=== PATIENT | male | born 1955 | race Caucasian/White ===

== ENCOUNTER 2017-04-16 10:05 | Emergency (ER) | payer BC ==
--- NOTE | 2017-04-16 12:06 | UC ---
Abdominal Pain Male HPI - HPI Summary HPI Summary: c/o diffuse abd pain right upper and lower abdomen---no fevers, eating ok - History of Current Complaint Chief Complaint: UCAbdominalPain Stated Complaint: MED REACTION/SIDE EFFECTS Time Seen by Provider: 04/16/17 10:40 Hx Obtained From: Patient Onset/Duration: Gradual Onset, Lasting Days, Still Present Timing: Intermittent Episodes Lasting: Severity Initially: Moderate Severity Currently: Mild Pain Intensity: 3 Pain Scale Used: 0-10 Numeric Location: Diffuse, Discrete At: RUQ, Discrete At: RLQ Radiates: No Character: Cramping Aggravating Factor(s):: Nothing Alleviating Factor(s): Nothing - did stop taking his questran Associated Signs And Symptoms: Positive: Negative - Allergies/Home Medications Allergies/Adverse Reactions: Allergies Allergy/AdvReac Type Severity Reaction Status Date / Time No Known Allergies Allergy Verified 04/16/17 10:45 Home Medications: Home Medications Cholestyramine Resin* [Questran*] 4 gm PO BID 04/16/17 [History Confirmed ] PMH/Surg Hx/FS Hx/Imm Hx Previously Healthy: Yes - Surgical History Surgical History: None - Family History Known Family History: Positive: Unknown - Social History Occupation: Retired Lives: With Family Alcohol Use: Weekly Substance Use Type: None Smoking Status (MU): Never Smoked Tobacco Review of Systems Constitutional: Negative Skin: Negative Eyes: Negative ENT: Negative Respiratory: Negative Cardiovascular: Negative Gastrointestinal: Abdominal Pain Genitourinary: Negative Motor: Negative Neurovascular: Negative Musculoskeletal: Negative Neurological: Negative Psychological: Negative All Other Systems Reviewed And Are Negative: Yes Physical Exam Triage Information Reviewed: Yes Appearance: Well-Appearing, No Pain Distress, Well-Nourished Vital Signs: Initial Vital Signs Temp 97.6 F 04/16/17 10:35 Pulse 65 04/16/17 10:35 Resp 14 04/16/17 10:35 BP 114/83 04/16/17 10:35 Pulse Ox 97 04/16/17 10:35 Vital Signs Reviewed: Yes Eye Exam: Normal Eyes: Positive: Conjunctiva Clear ENT Exam: Normal ENT: Positive: Normal ENT inspection, Hearing grossly normal, Pharynx normal, TMs normal. Negative: Nasal congestion, Nasal drainage, Tonsillar swelling, Tonsillar exudate, Trismus, Muffled/hoarse voice Dental Exam: Normal Neck exam: Normal Neck: Positive: Supple, Nontender Respiratory Exam: Normal Respiratory: Positive: Chest non-tender, Lungs clear, Normal breath sounds, No respiratory distress, No accessory muscle use Cardiovascular Exam: Normal Cardiovascular: Positive: RRR, No Murmur, Pulses Normal, Brisk Capillary Refill Abdominal Exam: Normal Abdomen Description: Positive: No Organomegaly, Soft, Other: - right upeer and lower abd pain. Negative: CVA Tenderness (R), CVA Tenderness (L) Bowel Sounds: Positive: Present Musculoskeletal Exam: Normal Musculoskeletal: Positive: Strength Intact, ROM Intact, No Edema Neurological Exam: Normal Neurological: Positive: Alert, Muscle Tone Normal Psychological Exam: Normal Skin Exam: Normal Diagnostics - Laboratory Diagnostic Studies Completed/Ordered: us---WNL, CT scan--2 and 2.5 fusiform anurusm. r and l iliac arteries, no kideney stones, normal appendix Abd Pain Male Course/Dx - Course Course Of Treatment: follow with Dr. Thomas and Gastroenterology for further testing - Differential Dx/Clinical Impression Differential Diagnosis/HQI/PQRI: Appendicitis, Bowel Obstruction, Constipation, Diverticulitis, Ureteral Stone, Urinary Tract Infection Provider Diagnoses: Adb. Pain Discharge - Discharge Plan Condition: Stable Disposition: HOME Patient Education Materials: Gas and Bloating (ED), Abdominal Pain (ED) Referrals: [facility] [Provider Group] - 1 Week Paula Moreno MD [Primary Care Provider] - 1 Week Additional Instructions: You have "out pouching" in you iliac arteries . Please follow with your primary care doctor for continued observation to assure they do not enlarge.. Also just for your information you do have some diverticuli in your intestine
--- NOTE | 2017-04-16 12:07 | RAD ---
INDICATION: Hematuria. RIGHT lower abdominal pain for 2 days worse at night. COMPARISON: December 17, 2014 RIGHT upper quadrant ultrasound. TECHNIQUE: Multidetector CT images were obtained from the lung bases to the ischial tuberosities. Evaluation of the viscera is limited without IV contrast. Multiplanar reformation. REPORT: Few small subcapsular hepatic cyst noted at the dome of the liver. No suspicious focal hepatic lesions or biliary dilatation. No CT abnormality of the distended gallbladder. Mild fatty involution of the pancreas without suspicious finding. Small splenule adjacent to the unremarkable dominant normal size spleen. Negative for CT abnormality of the upper GI, small bowel, or retrocecal appendix. Mild diverticulosis of the colon without findings of acute diverticulitis. Negative for ascites or free air. Small fat-containing umbilical hernia without inflammatory change. Normal adrenal glands. Negative for nephrolithiasis or hydronephrosis. Unremarkable nondilated ureters and urinary bladder. Negative for perinephric or periureteral inflammatory stranding. Enlarged prostate with coarse midline and RIGHT posterolateral calcifications. Grossly symmetric seminal vesicles. Vasectomy clips noted. Pelvic phleboliths. Negative for lymphadenopathy. Mild atherosclerotic calcification of normal diameter anomaly aorta. 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 Physiologic distention of the IVC. Polyarticular degenerative arthropathy. Arthropathy at the RIGHT hip is advanced. Negative for suspicious focal osseous lesions. IMPRESSION: 1. Negative for urolithiasis or hydronephrosis. No etiology for hematuria evident within limits of noncontrast CT. 2. Prostatomegaly 3. Normal appendix documented. Mild colonic diverticulosis. 4. Peripheral vascular disease. 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
[2017-04-16 12:33] VITALS: BP 125/85
--- NOTE | 2017-04-16 12:38 | RAD ---
HISTORY: Right upper quadrant pain COMPARISONS: December 17, 2014, CT dated February 14, 2017 TECHNIQUE: Multiple transverse and longitudinal ultrasound images were obtained of the right upper quadrant of the abdomen using grayscale and color Doppler imaging. FINDINGS: LIVER: There are small cysts of the right lobe of liver measuring up to 0.9 cm. There is normal hepatopedal flow of the portal vein on Doppler imaging. BILIARY TREE: There is no intrahepatic or extrahepatic biliary dilatation. The common duct measures 0.6 cm. GALLBLADDER: The gallbladder is well-visualized. There is no cholelithiasis, gallbladder wall thickening, pericholecystic fluid, or sonographic Copeland sign. PANCREAS: The head of the pancreas is unremarkable. The tail of the pancreas is not well visualized secondary to overlying bowel gas. RIGHT KIDNEY: The right kidney is normal in shape, size, contour, and echogenicity. There is no hydronephrosis or nephrolithiasis. The right kidney measures 11.7 x 6.5 x 8 cm. AORTA AND IVC: The aorta and IVC are unremarkable. FLUID: There are no pleural effusions. There is no free fluid within the hepatorenal recess. OTHER FINDINGS: None. IMPRESSION: NO ACUTE SONOGRAPHIC PATHOLOGY OF THE VISUALIZED PORTION OF THE ABDOMEN
== END 2017-04-16 13:23 | disposition home or self-care (01) ==
LOC: UCCORT 10:05
DX: R10.11 Right upper quadrant pain (principal); R10.31 Right lower quadrant pain
CPT/HCPCS: 74176; 76705; 81003; 99212; G0463